=== PATIENT | female | born 1980 | race Caucasian/White ===

== ENCOUNTER 2017-04-26 17:35 | Emergency (ER) | payer OTHER ==
[2017-04-26 18:18] LABS: BILIRUBIN NEGATIVE (NEGATIVE); BLOOD NEGATIVE Ery/uL (NEGATIVE); CLARITY CLEAR (CLEAR); COLOR YELLOW (YELLOW); GLUCOSE (U) NORMAL (NORMAL); KETONE (U) TRACE mg/dL (NEGATIVE); LEUKOCYTES NEGATIVE Leu/uL (NEGATIVE); NITRITE NEGATIVE (NEGATIVE); PROTEIN NEGATIVE (NEGATIVE); SPECIFIC GRAVITY 1.025 (1.001-1.030); UROBILINOGEN 0.2 mg/dL (0.2-1.0); pH 5.5 (5.0-9.0)
[2017-04-26 19:20] LABS: EOSINOPHIL 3.4 % (0-5); HCT 39.7 % (37.0-47.0); HGB 13.8 g/dl (12.5-16.0); LYMPHOCYTE 32.4 % (15-48); MCH 30.6 pg (25.0-31.0); MCHC 34.8 g/dL (32.0-36.0); MONOCYTE 8.5 % (0-12); MPV 9.8 fL (6.0-9.5); NEUTROPHIL 54.7 % (41-80); PLT 236 K/uL (150-400); RBC 4.51 M/uL (4.20-5.40); WBC 7.3 K/uL (4.0-10.5)
[2017-04-26 19:34] LABS: CREATININE 0.8 mg/dL (0.5-1.0); POTASSIUM 3.6 mmol/L (3.5-5.1)
== END 2017-04-26 20:07 | disposition home or self-care (01) ==
LOC: FER 17:35
PROVIDERS: Emergency Medicine
DX: J01.90 Acute sinusitis, unspecified (principal); I10 Essential (primary) hypertension; F32.9 Major depressive disorder, single episode, unspecified; F17.210 Nicotine dependence, cigarettes, uncomplicated; Z90.49 Acquired absence of other specified parts of digestive tract; Z79.899 Other long term (current) drug therapy
CPT/HCPCS: 36415; 80048; 81003; 85025; 87804; 87899; 99283